=== PATIENT | female | born 1960 | race Two or more races ===

== ENCOUNTER 2025-03-20 06:45 | Day surgery (SDC) | payer MEDICARE, MEDICAID ==
[2025-03-20] VITALS (9 sets, daily range): BP systolic 110–127; BP diastolic 53–74; PULSE 74–81; RESP 12–21; O2SAT 95–100
[~2025-03-20] VITALS: Ht 149.9 cm; Wt 77.1 kg
[~2025-03-20 06:45] MED LIST: ATOR20TA50 PO; BUME1TAB25 PO; DIGO0.25 PO; GEMF-66 PO; METF-370 PO; METO-158 PO; MILK500C2 PO; SENN-195 PO; SITA100T7 PO
[2025-03-20] MEDS: LIDOCAINE VISCOUS 2% 15ML UD PO ONE (09:00)
[2025-03-20] MEDS: fentaNYL CITRATE 100 MCG/2 ML VL IV ONE (09:00)
[2025-03-20] MEDS: MIDAZOLAM HCL 2MG/2ML 2ml VIAL (1mg/ml) IV ONE (09:00)
--- NOTE | 2025-03-20 09:14 | DVHOP2 ---
Operative Report Trans-Esophageal Echocardiogram PROCEDURE REPORT Date of Service: 03/20/2025 Water Regulator And Valve Repairer: Sagar Mcmahon MD PROCEDURE PERFORMED: Transesophageal echocardiogram, conscious sedation administration and supervision, more than 15 minutes. Intra cardiac bubble study. PREOPERATIVE DIAGNOSES: r/o Valvular heart disease (Mitral Stenosis?). DESCRIPTION OF PROCEDURE: The patient signed informed consent understanding risks, benefits and alternatives of the procedure, she wished to proceed. The patient was given 15 mL of oral viscous lidocaine. She was placed in a left lateral decubitus position and conscious sedation was administered per wharf laborer protocol (1 mg of Versed and 50 mcg of Fentanyl). I administered a bite block into her mouth and a REJI probe into the mid esophagus without any difficulties or complications. Multiple planar images were obtained. Bubble study was also performed. At the completion of procedure, REJI probe was removed and there were no immediate complications. Vitals signs were stable throughout the procedure. FINDINGS: 1. Left ventricle: Mild concentrated Left ventricular hypertrophy was seen. LVEF was 65%. There was no gross wall motion abnormality seen. 2. Right ventricle: RV was normal sized with normal systolic function. 3. Left atrium: LA enlarged 4. Right atrium: RA was enlarged. 5. Mitral valve: Mitral leaflets were somehow thickened questioning Rheumatic disease? Moderate Mitral Annular Calcification was seen. Moderate Mitral regurgitation was seen. Peak / Mean pressure gradient across Mitral valve was 20/11 mmHg. Severe Mitral Stenosis was present. There was no vegetation. 6. Left atrial appendage: No evidence of thrombus. 7. Aortic valve: Trileaflet valve. No stenosis. No Aortic Insufficiency was seen. No Rheumatic features for Aortic valve. There was no vegetation 8. Pulmonic valve: Trivial pulmonic insufficiency. No significant stenosis. 9. Tricuspid valve: Trace tricuspid regurgitation was seen. There was no vegetation 10. Interatrial septum: Negative color flow for right to left shunt was observed. Bubble study was performed: negative for shunt 11. Pericardium: No significant effusion. 12. Thoracic aorta: No significant plaquing. Severe Mitral Stenosis and Moderate Mitral Regurgitation SAGAR MCMAHON MD Mar 20, 2025 09:14
== END 2025-03-20 10:42 | disposition home or self-care (01) ==
LOC: CATH 06:45
PROVIDERS: ATTEND Internal Medicine Cardiovascular Disease
DX: I05.0 Rheumatic mitral stenosis (principal); I37.1 Nonrheumatic pulmonary valve insufficiency; I10 Essential (primary) hypertension; E11.9 Type 2 diabetes mellitus without complications; E78.5 Hyperlipidemia, unspecified; E66.9 Obesity, unspecified; Z68.34 Body mass index [BMI] 34.0-34.9, adult; Z79.84 Long term (current) use of oral hypoglycemic drugs; Z79.899 Other long term (current) drug therapy
CPT/HCPCS: 93312; 93320; 93325; J2250; J3010; J7040; 99152